=== PATIENT | male | born 1985 | race American Indian/Alaskan Native ===

== ENCOUNTER 2016-05-31 17:01 | Emergency (ER) | payer OTHER ==
[2016-05-31] MEDS ORDERED: TORADOL IM ONE (22:31)
--- NOTE | 2016-05-31 22:32 | Emergency Department Report ---
- General Chief Complaint: Upper Respiratory Infection Stated Complaint: FLU SYMPTOMS Time Seen by Provider: 05/31/16 22:31 Source: patient Mode of arrival: Ambulatory Limitations: No Limitations - History of Present Illness Initial Comments: Patient reports chills, fever, sneezing, dry cough, nasal congestion and body aches that started 3 days ago. MD Complaint: fever, cough, sore throat, rhinorrhea, nasal congestion, other ( body aches) Onset/Timin -: days(s) Severity: severe Severity scale (0 -10): 8 Quality: aching Consistency: constant Improves With: nothing Worsens With: activity, deep breaths, changing head position Context: sick contacts Associated Symptoms: fever, chills, myalgias, rhinorrhea, nasal congestion, sore throat, cough. denies: diaphoresis, headache, stiff neck, chest pain, shortness of breath, abdominal pain, nausea, vomiting, diarrhea, dysuria, rash, confusion, right sweats, weight loss, epistaxis, hoarseness, ear pain Treatments Prior to Arrival: other (OTC Theraflu) - Related Data Previous Rx's Medication Instructions Recorded Last Taken Type Benzonatate [Tessalon Perles] 100 mg PO Q8HR #10 capsule 05/31/16 Unknown Rx Cetirizine HCl [ZyrTEC] 10 mg PO DAILY #30 capsule 05/31/16 Unknown Rx Ibuprofen [Motrin 800 MG tab] 800 mg PO Q8HR PRN #30 tablet 05/31/16 Unknown Rx Allergies Allergy/AdvReac Type Severity Reaction Status Date / Time No Known Allergies Allergy Unverified 05/31/16 17:14 ED Review of Systems ROS: Stated complaint: FLU SYMPTOMS Other details as noted in HPI Constitutional: chills, fever. denies: diaphoresis, malaise, weakness Eyes: denies: eye pain, eye discharge, vision change ENT: throat pain, congestion (nasal). denies: ear pain, dental pain, hearing loss, epistaxis Respiratory: cough (nonproductive). denies: orthopnea, shortness of breath, SOB with exertion, SOB at rest, stridor, wheezing Cardiovascular: denies: chest pain, palpitations, dyspnea on exertion, orthopnea , edema, syncope, paroxysmal nocturnal dyspnea Gastrointestinal: denies: abdominal pain, nausea, vomiting, diarrhea, constipation Musculoskeletal: arthralgia (generalized). denies: back pain, joint swelling, myalgia Skin: denies: rash, lesions, change in color, change in hair/nails, pruritus Neurological: denies: headache, weakness, numbness, paresthesias, confusion, abnormal gait ED Past Medical Hx - Past Medical History Previous Medical History?: No - Surgical History Past Surgical History?: No - Social History Smoking Status: Current Every Day Smoker Substance Use Type: Alcohol - Medications Home Medications: Home Medications Medication Instructions Recorded Confirmed Last Taken Type Benzonatate [Tessalon Perles] 100 mg PO Q8HR #10 capsule 05/31/16 Unknown Rx Cetirizine HCl [ZyrTEC] 10 mg PO DAILY #30 capsule 05/31/16 Unknown Rx Ibuprofen [Motrin 800 MG tab] 800 mg PO Q8HR PRN #30 tablet 05/31/16 Unknown Rx ED Physical Exam - General Limitations: No Limitations General appearance: alert, in no apparent distress - Head Head exam: Present: atraumatic, normocephalic - Eye Eye exam: Present: normal appearance, PERRL, EOMI Pupils: Present: normal accommodation - ENT ENT exam: Present: normal exam, normal orophraynx, mucous membranes moist, TM's normal bilaterally, normal external ear exam, other (swelling to nasal turbinates). Absent: mucous membranes dry - Expanded ENT Exam Expanded Ear exam: Present: normal external inspection. Absent: auricular hematoma, auricular trauma Mouth exam: Present: normal external inspection. Absent: drooling, trismus, muffled voice, tongue normal, tongue elevation, laceration Teeth exam: Present: normal inspection Throat exam: Positive: normal inspection, tonsillar erythema. Negative: tonsillomegaly, tonsillar exudate, R peritonsillar mass, L peritonsillar mass - Neck Neck exam: Present: normal inspection, full ROM. Absent: tenderness, meningismus, lymphadenopathy, thyromegaly - Respiratory Respiratory exam: Present: normal lung sounds bilaterally. Absent: respiratory distress, wheezes, rales, rhonchi, stridor, chest wall tenderness, accessory muscle use, decreased breath sounds, prolonged expiratory - Cardiovascular Cardiovascular Exam: Present: tachycardia, normal heart sounds. Absent: systolic murmur, diastolic murmur, rubs, gallop, clicks, JVD, S3, S4 - GI/Abdominal GI/Abdominal exam: Present: soft, normal bowel sounds - Back Exam Back exam: Present: normal inspection, full ROM. Absent: CVA tenderness (R), CVA tenderness (L) - Neurological Exam Neurological exam: Present: alert, oriented X3, CN II-XII intact, normal gait, reflexes normal. Absent: motor sensory deficit - Skin Skin exam: Present: warm, dry, intact, normal color. Absent: rash ED Course Vital Signs 05/31/16 17:10 Temperature 98.8 F Pulse Rate 103 H Respiratory 16 Rate Blood Pressure 138/97 O2 Sat by Pulse 100 Oximetry - Reevaluation(s) Reevaluation #1: 05/31/16 22:31 Analgesics and laboratory study ordered ED Medical Decision Making - Lab Data Microbiology 05/31/16 22:30 Group A Streptococcus Rapid Screen - Final Throat Negative Vital Signs 05/31/16 17:10 Temperature 98.8 F Pulse Rate 103 H Respiratory 16 Rate Blood Pressure 138/97 O2 Sat by Pulse 100 Oximetry - Medical Decision Making During the course of ED, analgesics and laboratory study were ordered. Laboratory study was negative for Streptococcus A. Patient reports symptomatic relief from medication given in the ED. He was sent home with prescriptions for ibuprofen, Zyrtec and Tessalon Perles, instructed to follow with selective referrals given at discharge, he verbalize understanding - Differential Diagnosis Upper respiratory infection, Strep Pharyngitis, Rhinitis Critical care attestation.: If time is entered above; I have spent that time in minutes in the direct care of this critically ill patient, excluding procedure time. ED Disposition Clinical Impression: Upper respiratory infection Qualifiers: URI type: unspecified URI Qualified Code(s): J06.9 - Acute upper respiratory infection, unspecified Disposition: DISCHARGED TO HOME OR SELFCARE Is pt being admited?: No Condition: Stable Instructions: Upper Respiratory Infection (ED) Additional Instructions: Take medication as directed. Drink plenty of fluids to stay hydrated. Follow up with selective referrals given at discharge Prescriptions: Ibuprofen [Motrin 800 MG tab] 800 mg PO Q8HR PRN #30 tablet PRN Reason: Pain Benzonatate [Tessalon Perles] 100 mg PO Q8HR #10 capsule Cetirizine HCl [ZyrTEC] 10 mg PO DAILY #30 capsule Referrals: PRIMARY CARE, [Primary Care Provider] - 3-5 Days [facility] [Outside] - 3-5 Days Forms: Work/School Release Form(ED) Time of Disposition: 22:57
[2016-05-31 23:26] VITALS: BP 130/84
== END 2016-05-31 23:09 | disposition home or self-care (01) ==
LOC: ED 17:01
DX: J06.9 Acute upper respiratory infection, unspecified (principal); F17.200 Nicotine dependence, unspecified, uncomplicated
CPT/HCPCS: 87116; 87430; 96372; 99282; J1885

== ENCOUNTER 2017-02-21 21:27 | Emergency (ER) | payer OTHER ==
[2017-02-22] MEDS ORDERED: FUL-GLO OP ONE (00:12)
[2017-02-22] MEDS ORDERED: TETRACAINE 0.5% OS ONE (00:12)
--- NOTE | 2017-02-22 00:45 | Emergency Department Report ---
HPI - General Chief Complaint: Eye Problems Time Seen by Provider: 02/22/17 00:11 - HPI HPI: This is a 31-year-old male presents to the emergency department with a complaint of some left eye irritation that occurred around 10 PM this evening while patient was at work. 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 He flushes eye with water and some nonspecific eye solution. It feels better but the patient's job told him he should get evaluated. He denies any vision change or any eye pain or discharge. He denies any past medical history. He does not wear glasses or contacts. ED Past Medical Hx - Past Medical History Previous Medical History?: No - Surgical History Past Surgical History?: No - Social History Smoking Status: Current Every Day Smoker Substance Use Type: Alcohol - Medications Home Medications: Home Medications Medication Instructions Recorded Confirmed Last Taken Type Benzonatate [Tessalon Perles] 100 mg PO Q8HR #10 capsule 05/31/16 Unknown Rx Cetirizine HCl [ZyrTEC] 10 mg PO DAILY #30 capsule 05/31/16 Unknown Rx Ibuprofen [Motrin 800 MG tab] 800 mg PO Q8HR PRN #30 tablet 05/31/16 Unknown Rx ED Review of Systems ROS: Stated complaint: LT EYE IRRITATION Other details as noted in HPI Comment: All other systems reviewed and negative Constitutional: denies: chills, fever Eyes: eye pain. denies: eye discharge, vision change ENT: denies: ear pain, throat pain Respiratory: denies: cough, shortness of breath, wheezing Cardiovascular: denies: chest pain, palpitations Gastrointestinal: denies: abdominal pain, nausea, diarrhea Genitourinary: denies: urgency, dysuria Musculoskeletal: denies: back pain, joint swelling, arthralgia Skin: denies: rash, lesions Neurological: denies: headache, weakness, paresthesias Physical Exam - Physical Exam Vital Signs: Vital Signs 02/21/17 21:46 Temperature 98.3 F Pulse Rate 95 H Respiratory 16 Rate Blood Pressure 153/69 O2 Sat by Pulse 100 Oximetry Physical Exam: GENERAL: The patient is well-developed well-nourished. HENT: Normocephalic. Atraumatic. Patient has moist mucous membranes. EYES: Extraocular motions are intact. Pupils equal reactive to light bilaterally. Visual acuity: Both eyes 20/20, OD 20/20, OS 20/20. No visible discharge. No nystagmus. There is no fluorescein uptake to the affected left eye. NECK: Supple. Trachea is midline. CHEST/LUNGS: Clear to auscultation. There is no respiratory distress noted. HEART/CARDIOVASCULAR: Regular. There is no tachycardia. ABDOMEN: Abdomen is soft, nontender. SKIN: Skin is warm and dry. NEURO: The patient is awake, alert, and oriented. The patient is cooperative. The patient has normal speech and gait. MUSCULOSKELETAL: There is no tenderness or deformity. There is no limitation range of motion. There is no evidence of acute injury. ED Course Vital Signs 02/21/17 21:46 Temperature 98.3 F Pulse Rate 95 H Respiratory 16 Rate Blood Pressure 153/69 O2 Sat by Pulse 100 Oximetry ED Medical Decision Making - Medical Decision Making 31-year-old male presents with some left eye irritation that has since resolved but recurred when he feels like something got into the eye at work prior to presentation. Visual acuity is normal. Physical exam the eye appears normal as well. I did a fluorescein staining with a tetracaine drop into the left eye. The Toth lamp was used and there was no sign of any corneal abrasion. He denies any current pain. There is no discharge. I did not feel that antibiotics were necessary at this time. However he was given referrals for ophthalmology and encouraged to return here or to ophthalmology if there is any return of his symptoms, vision change or any acute distress. He understands and agrees with plan. - Differential Diagnosis conjunctivitis, corneal abrasion, corneal ulcer, foreign body Critical Care Time: No Critical care attestation.: If time is entered above; I have spent that time in minutes in the direct care of this critically ill patient, excluding procedure time. ED Disposition Clinical Impression: Irritation of left eye Disposition: DC-01 TO HOME OR SELFCARE Is pt being admited?: No Condition: Stable Additional Instructions: You were seen today for some left eye irritation that has since resolved. If there is any return of your symptoms, any discharge from the eye, change in vision, then you need to return and be seen for reevaluation or see an cardiac cath technician. Referrals: PRIMARY CARE, [Primary Care Provider] - 3-5 Days YUNIOR QUINONES MD [Staff Physician] - 3-5 Days WALTER ESPARZA MD [Staff Physician] - 3-5 Days Forms: Work/School Release Form(ED) Time of Disposition: 00:45
[2017-02-22 00:57] VITALS: BP 126/84
== END 2017-02-22 00:50 | disposition home or self-care (01) ==
LOC: ED 21:27
DX: H57.8 Other specified disorders of eye and adnexa (principal); F17.200 Nicotine dependence, unspecified, uncomplicated
CPT/HCPCS: 99283